=== PATIENT | male | born 1975 | race Caucasian/White ===

== ENCOUNTER 2017-12-18 09:15 | Inpatient (IN) | payer BC ==
[2017-12-18] MEDS ORDERED: EPINEPHrine 2 MG in DEXTROSE 5% IN WATER 250 ML IV ONE ×2 (09:30)
[2017-12-18] MEDS ORDERED: SODIUM CHLORIDE 0.9% 1,000 ML IV STA (09:31)
[2017-12-18] MEDS ORDERED: EPINEPHRINE IV ONE ×4 (09:32→09:48)
[2017-12-18] MEDS ORDERED: DEXTROSE 5% IV ONE ×2 (09:32)
[2017-12-18] MEDS ORDERED: WATER IV ONE ×2 (09:32)
[2017-12-18 09:43] LABS: Glucose,Whole Blood 221 mg/dL (75-99)
--- NOTE | 2017-12-18 09:43 | ED ---
General Adult HPI - General Stated complaint: cardiac Source: EMS, RN notes reviewed Mode of arrival: EMS Limitations: altered mental status, physical limitation - History of Present Illness Initial comments: Patient is an unresponsive 42-year-old male presenting to the emergency department with a transfer from [facility]. Patient reportedly did complain of either chest or back discomfort that radiated to the left shoulder. EMS reports patient complained of back discomfort however [facility] stated patient complained of chest discomfort. Patient did have a syncopal episode. While at [facility] patient did go into V. tach and V. fib. Patient also went into pulseless electrical activity. Following this patient was bradycardic. EKG did show ST depression. Call was received from Dr. rachel at [facility] requesting transfer. I did request a call cardiology. They did speak with both Dr. Barkley and Dr. Montesinos. I also spoke with Dr. Barkley and Dr. Montesinos prior to patient arrival. Dr. Montesinos did come down within the first minute or 2 of patient arrival to evaluate. Review of Systems ROS Statement: Those systems with pertinent positive or pertinent negative responses have been documented in the HPI. Limitations: ROS unobtainable due to patients medical condition General Exam Limitations: altered mental status, physical limitation General appearance: obtunded Head exam: Present: atraumatic Eye exam: Present: other (Pupils are fixed and dilated) ENT exam: Present: other (Intubated) Neck exam: Present: normal inspection Respiratory exam: Present: normal lung sounds bilaterally (On ventilator) Cardiovascular Exam: Present: regular rate, normal rhythm GI/Abdominal exam: Present: soft. Absent: tenderness Extremities exam: Present: normal inspection Neurological exam: Present: other (Unresponsive. GCS 3.) Expanded Eye Response: (1) no response Motor Response: (1) no motor response Verbal Response: (1) no verbal response Psychiatric exam: Present: other (Unresponsive) Skin exam: Present: normal color Course - Reevaluation(s) Reevaluation #1: 12/18/17 09:39 Patient did go into V. fib in the emergency department. Patient was shocked and return of circulation was obtained. 12/18/17 09:41 was updated. She states patient actually complained of shoulder discomfort upon presentation. She denies any previous cardiac history. 12/18/17 09:44 Patient has left for the [facility] at this time. Case was also discussed in detail with Dr. solis, who will admit for Dr. crews. EKG Findings - EKG Comments: EKG Findings:: Sinus bradycardia 58. For screening AV block with NV of 254. QRS 122. QT 456. QTc 447. Normal axis. Nonspecific intraventricular conduction delay. ST elevation in AVR with diffuse ST depression. Medical Decision Making - Radiology Data Interpreted by me: Chest x-ray reviewed by myself does show appropriate endotracheal tube and gastric tube placement. There is diffuse patchy infiltrates, mostly of the upper lobe. No gross mediastinal widening. Disposition Clinical Impression: Cardiac arrest Disposition: ADMITTED IP TO THIS HOSP Condition: Critical Is patient prescribed a controlled substance at d/c from ED?: No Referrals: Caleb Torre MD [Primary Care Provider] - 1-2 days Decision Time: 09:45
[2017-12-18] MEDS ORDERED: IV FLUID CONTINUATION 1,000 ML IV ONE ×3 (09:48)
[2017-12-18] MEDS ORDERED: FLUID CONTINUATION IV ONE ×2 (09:48)
--- NOTE | 2017-12-18 09:50 | XR ---
EXAMINATION TYPE: XR chest 1V portable DATE OF EXAM: 12/18/2017 COMPARISON: NONE HISTORY: Chest pain TECHNIQUE: Single frontal view of the chest is obtained. FINDINGS: ET tube approximately 6.7 cm above tete. NG tube seen with the tip near the GE junction. Bilateral areas of consolidation are noted. No pneumothorax. Heart size slightly prominent. IMPRESSION: Bilateral airspace disease can be seen with pneumonia or pulmonary edema correlate clini jacquelin. NG tube could be advanced a few centimeters with the tip at the GE junction.
[2017-12-18 09:52] LABS: Basophils # (A) 0.2 k/uL (0-0.2); Basophils % (A) 1 %; Eosinophils # (A) 0.2 k/uL (0-0.7); Eosinophils % (A) 1 %; HCT 46.5 % (39.0-53.0); HGB 14.3 gm/dL (13.0-17.5); Hypochromasia Marked; Lymphocytes # (A) 6.8 k/uL (1.0-4.8); Lymphocytes % (A) 39 %; MCH 32.4 pg (25.0-35.0); MCHC 30.7 g/dL (31.0-37.0); MCV 105.6 fL (80.0-100.0); Macrocytosis Slight; Mean Platelet Volume 8.6; Monocytes # (A) 0.4 k/uL (0-1.0); Monocytes % (A) 2 %; Neutrophils # (A) 9.6 k/uL (1.3-7.7); Neutrophils % (A) 55 %; RBC 4.41 m/uL (4.30-5.90); RDW 12.8 % (11.5-15.5); WBC 17.4 k/uL (3.8-10.6)
[2017-12-18] MEDS ORDERED: LIDOCAINE 2% INJ 20 MG/ML SQ ONE (10:00)
[2017-12-18 10:06] LABS: Platelet Count 70 k/uL (150-450)
[2017-12-18 10:11] LABS: Albumin 2.2 g/dL (3.5-5.0); Calcium 7.7 mg/dL (8.4-10.2); Total Bilirubin 0.7 mg/dL (0.2-1.3); Total Protein 4.2 g/dL (6.3-8.2)
[2017-12-18 10:17] LABS: Potassium 3.9 mmol/L (3.5-5.1)
[2017-12-18 10:19] LABS: INR 1.6 (<1.2)
[2017-12-18 10:20] LABS: Prothrombin Time 14.5 sec (9.0-12.0)
[2017-12-18] MEDS ORDERED: MIDAZOLAM 2 MG/2 ML VIAL IV ONE ×2 (10:22→11:15)
[2017-12-18 10:27] LABS: HCT 46.9 % (39.0-53.0); HGB 14.4 gm/dL (13.0-17.5); Hypochromasia Marked; MCH 31.5 pg (25.0-35.0); MCHC 30.8 g/dL (31.0-37.0); MCV 102.4 fL (80.0-100.0); Macrocytosis Slight; Mean Platelet Volume 9.6; RBC 4.58 m/uL (4.30-5.90); RDW 12.7 % (11.5-15.5); WBC 23.7 k/uL (3.8-10.6)
[2017-12-18 10:29] LABS: Platelet Count 94 k/uL (150-450)
[2017-12-18 10:32] LABS: D-Dimer >35.20 mg/L FEU (<0.60)
[2017-12-18 10:34] LABS: Magnesium 4.9 mg/dL (1.6-2.3); Partial Thromboplastin Time >200.0 sec (22.0-30.0)
[2017-12-18 10:36] LABS: Troponin I 1.05 ng/mL (0.000-0.034)
[2017-12-18] MEDS ORDERED: POTASSIUM CHLORIDE 40 MEQ in SODIUM CHLORIDE 0.9% 250 ML IVPB ONE (10:39)
[2017-12-18] MEDS ORDERED: BIVALIRUDIN 250 MG in SODIUM CHLORIDE 0.9% 50 ML IV ONE ×2 (10:48→11:43)
[2017-12-18] MEDS ORDERED: BIVALIRUDIN BOLUS 250 MG/50 ML IV ONE (10:48)
[2017-12-18] MEDS ORDERED: EPINEPHrine 10 ML SYRINGE (0.1 MG/ML) ONE ×2 (10:51→22:43)
[2017-12-18 11:00] LABS: Band Neutrophils % 7 %; Eosinophils # (M) 0.47 k/uL (0-0.7); Lymphocytes # (M) 9.01 k/uL (1.0-4.8); Metamyelocytes # (M) 0.71 k/uL (0); Metamyelocytes % 3 %; Monocytes # (M) 0.24 k/uL (0-1.0); Myelocytes # (M) 0.95 k/uL (0); Myelocytes % 4 %; Neutrophils % (M) 47 %; Nucleated Red Blood Cells 0 /100 WBC (0-0); Total Cells Counted 200
[2017-12-18] MEDS ORDERED: POTASSIUM CHLORIDE 100 ML IVPB SCH (11:00)
[2017-12-18 11:02] LABS: Anisocytosis (M) Present; Poikilocytosis (M) Present
[2017-12-18] MEDS ORDERED: DEXTROSE 5% IN WATER 100 ML with AMIODARONE 150 MG IV ONE (11:08)
[2017-12-18] MEDS ORDERED: FUROSEMIDE 10 MG/ML 4 ML VIAL IV ONE ×2 (11:08→11:23)
[2017-12-18] MEDS ORDERED: NITROGLYCERIN 1000MCG/10ML SYRINGE INTRACORON ONE (11:17)
[2017-12-18] MEDS ORDERED: FUROSEMIDE 10 MG/ML 4 ML VIAL ONE (11:20)
[2017-12-18] MEDS: POTASSIUM CHLORIDE 20 MEQ in WATER FOR INJECTION 1 100ML.BAG IVPB SCH ×2 (11:23→13:16)
[2017-12-18] MEDS: AMIODARONE 450 MG in DEXTROSE 5% IN WATER 250 ML IV SCH ×4 (11:32→19:53)
[2017-12-18] MEDS ORDERED: SODIUM BICARB 8.4% 50 ML SYR (1 MEQ/ML) IV ONE (11:48)
[2017-12-18] MEDS: MIDAZOLAM 2 MG/2 ML VIAL IV ONE ×2 (11:50→12:25)
[2017-12-18] MEDS ORDERED: CALCIUM CHLORIDE 100 MG/ML 10 ML SYRINGE IV ONE ×2 (11:50)
[2017-12-18] MEDS ORDERED: LIDOCAINE HCL/PF 20 MG/ML 10 ML AMP IV ONE (11:54)
[2017-12-18] MEDS ORDERED: IOPAMIDOL-370 125ML BTL INJ ONE (11:58)
[2017-12-18] MEDS ORDERED: IOPAMIDOL-370 100ML BTL INJ ONE ×2 (11:58)
[2017-12-18] MEDS ORDERED: LIDOCAINE 2% INJ 20 MG/ML (20 ML MDV) IV ONE (12:01)
[2017-12-18] MEDS ORDERED: NITROGLYCERIN SL TABS 0.4 MG TAB SUBLINGUAL PRN (12:03)
[2017-12-18] MEDS ORDERED: RX INFO: IV CONTRAST WAS GIVEN 1 EACH MISC MISCELLANE PRN (12:03)
[2017-12-18] MEDS ORDERED: SODIUM CHLORIDE 0.9% 1,000 ML IV SCH (12:15)
--- NOTE | 2017-12-18 12:15 | P.CRDCN ---
History of Present Illness Consult date: 12/18/17 History of present illness: This is a 42-year-old gentleman who was transferred from [facility] to [facility] emergency room after cardiac arrest. The patient currently is intubated and he is on ventilator and the history was taken from his who was bedside. The patient was in his usual state of health until this cuff folder when he woke up from sleep complaining of pain in between his shoulders. No chest pain or chest discomfort. No shortness of breath or dizziness or lightheadedness or sweating. He didn't tell his about the pain in his shoulder and subsequently the who was in the other room here N Jesus and she went to check on her where he was long-term on the chair and long-term on the floor with saliva coming out of his mouth. The patient was in cardiac arrest. EMS was called and the down time at that point was 15 minutes. The patient was found to be in V. fib where he received CPR and was brought to normal sinus mechanism and that he was brought to the emergency room at [facility]. At the emergency room over there he did have to cardiac arrest each one about 15-20 minutes down time was V. fib and the patient was brought back to normal sinus mechanism after CPR. On the way to the emergency room at [facility] the patient had another cardiac arrest for about 15 minutes as well as and he was brought to normal sinus mechanism after he received CPR as well. In the emergency room here I did review the EKG and at that point the patient was in normal sinus mechanism and the EKG showed sinus rhythm with ST segment elevation in aVR and diffuse ST segment depression, finding quite concerning for left main coronary artery. The patient was taken emergently to the cardiac catheterization laboratory where he did undergo a heart catheterization and was found to have acute total occlusion of the large first obtuse marginal branch of the left circumflex with thrombus burden. Beside that he was found to have moderate to severe disease involving the LAD. At that point I attempted placing an Impella but every time across aortic valve with a wire the patient goes to V. fib and we had to shock him to bring him back to normal sinus mechanism. Currently the patient is intubated, he is on ventilator,. He is on lidocaine drip, amiodarone drip, and he is on AP drip as well. He will be on dual antiplatelet therapy along with high intensity statin and also I will start him on metoprolol. We will consult nursing department chairperson, Dr. Diego to see him as well. I already spoke with his primary care physician and I already updated him about was going on with him and where we are at this point. Past Medical History Past Medical History: No Reported History History of Any Multi-Drug Resistant Organisms: Unobtainable Past Surgical History: No Surgical Hx Reported Past Psychological History: Unable to Obtain Smoking Status: Unknown if ever smoked Past Alcohol Use History: Unable to Obtain Past Drug Use History: Unable to Obtain - Past Family History Mother Family Medical History: Coronary Artery Disease (CAD), Hyperlipidemia, Hypertension Additional Family Medical History / Comment(s): diet controlled dm, cardiac stents Father Family Medical History: Coronary Artery Disease (CAD), Myocardial Infarction ([place] ) Additional Family Medical History / Comment(s): mi at ge 49, cardiac astents x5 Medications and Allergies Home Medications Medication Instructions Recorded Confirmed Type Ibuprofen [Motrin Ib] 400 mg PO Q6H PRN 12/18/17 12/18/17 History Losartan/Hydrochlorothiazide 1 tab PO DAILY 12/18/17 12/18/17 History [Losartan-Hctz 50-12.5 mg Tab] Metoprolol Succinate (ER) [Toprol 50 mg PO DAILY 12/18/17 12/18/17 History Xl] Allergies Allergy/AdvReac Type Severity Reaction Status Date / Time codeine Allergy Hallucinati Verified 12/18/17 14:20 ons Physical Exam Vitals: Vital Signs Temp Pulse Resp Pulse Ox 12/18/17 10:35 96.2 F L 63 18 77 L 12/18/17 09:16 96.2 F L 63 18 77 L Intake and Output 12/17/17 12/18/17 12/18/17 22:59 06:59 14:59 Intake Total 38.26 Balance 38.26 Intake: IV 38.26 Other: Weight 81.647 kg - Constitutional General appearance: mild distress - Respiratory Respiratory: bilateral: diminished - Cardiovascular Rhythm: regular Results 12/19/17 00:50 12/19/17 00:50 Cardiac Enzymes 12/18/17 12/18/17 Range/Units 09:31 09:31 AST 164 H (17-59) U/L CK-MB (CK-2) 36.0 H* (0.0-2.4) ng/mL Troponin I 1.050 H* (0.000-0.034) ng/mL Coagulation 12/18/17 Range/Units 09:31 PT 14.5 H (9.0-12.0) sec APTT >200.0 H* (22.0-30.0) sec CBC 12/18/17 12/18/17 Range/Units 09:31 10:15 WBC 17.4 H 23.7 H (3.8-10.6) k/uL RBC 4.41 4.58 (4.30-5.90) m/uL Hgb 14.3 14.4 (13.0-17.5) gm/dL Hct 46.5 46.9 (39.0-53.0) % Plt Count 70 L 94 L (150-450) k/uL Comprehensive Metabolic Panel 12/18/17 12/18/17 Range/Units 09:31 10:15 Sodium 146 H (137-145) mmol/L Potassium 3.9 (3.5-5.1) mmol/L Chloride 111 H (98-107) mmol/L Carbon Dioxide 7 L* (22-30) mmol/L BUN 6 L 6 L (9-20) mg/dL Creatinine 1.41 H 1.53 H (0.66-1.25) mg/dL Glucose 230 H (74-99) mg/dL Calcium 7.7 L (8.4-10.2) mg/dL AST 164 H (17-59) U/L ALT 68 (21-72) U/L Alkaline Phosphatase 69 (38-126) U/L Total Protein 4.2 L (6.3-8.2) g/dL Albumin 2.2 L (3.5-5.0) g/dL Current Medications Generic Name Dose Route Start Last Admin Trade Name Freq PRN Reason Stop Dose Admin Epinephrine HCl 2 mg/ Dextrose 252 mls @ 15.12 mls/hr 12/18/17 09:30 /Water IV 12/19/17 02:02 .[id number] ONE Protocol 2 MCG/MIN Sodium Chloride 1,000 mls @ 100 mls/hr 12/18/17 09:31 Saline 0.9% IV 12/18/17 19:30 .Q10H STA Epinephrine HCl 5 mg/ Dextrose 252 mls @ 6.04 mls/hr 12/18/17 09:32 /Water IV 12/19/17 09:31 .Q24H ONE Protocol 2 MCG/MIN Potassium Chloride 20 meq/ IV 100 mls @ 50 mls/hr 12/18/17 11:15 12/18/17 11: 23 Solution IVPB 12/18/17 13:59 0 mls Q2HR AILYN Administration Amiodarone HCl 450 mg/ 250 mls @ 33.33 mls/hr 12/18/17 11:15 12/18/17 11:32 Dextrose/Water IV 12/19/17 11:13 0 mls .[id number] AILYN Administration Protocol 1 MG/MIN Lidocaine HCl 81.647 mg 12/18/17 12:01 Xylocaine 2% Inj (20mg/Ml) 1 mg/kg (81.647 mg) 12/18/17 12:02 IV ONCE ONE Intake and Output 12/17/17 12/18/17 12/18/17 22:59 06:59 14:59 Intake Total 38.26 Balance 38.26 Intake: IV 38.26 Other: Weight 81.647 kg Patient Weight 12/19/17 06:59 Weight 81.647 kg 12/18/17 10:15 12/18/17 10:15 Assessment and Plan Assessment: Assessment #1 cardiac arrest #2 [address] elevation myocardial infarction #3 cardiogenic shock #4 significant history of smoking Plan #1 dual antiplatelet therapy along with a statin next #2 continue the amiodarone drip and lidocaine drip #3 ICU management per Supervisor Telephone Clerks #4 follow-up with the patient.
--- NOTE | 2017-12-18 12:27 | ECHOF ---
Referral Reason:S/P cardiac Arrest MEASUREMENTS -------- HEIGHT: 177.8 cm WEIGHT: 81.6 kg BP: RVIDd: 2.4 cm (< 3.3) IVSd: 1.1 cm (0.6 - 1.1) LVIDd: 4.1 cm (3.9 - 5.3) LVPWd: 1.2 cm (0.6 - 1.1) IVSs: 1.4 cm LVIDs: 3.4 cm LVPWs: 1.3 cm LAESV Index (A-L): 31.64 ml/m Ao Diam: 2.9 cm (2.0 - 3.7) AV Cusp: 1.8 cm (1.5 - 2.6) LA Diam: 2.4 cm (2.7 - 3.8) EPSS: 0.8 cm MV E Simón: 1.06 m/s MV DecT: 232 ms MV A Simón: 0.46 m/s MV E/A Ratio: 2.31 RAP: 5.00 mmHg RVSP: 12.99 mmHg MV EF SLOPE: 100.42 mm/s (70 - 150) MV EXCURSION: 1.24 cm (> 18.000) FINDINGS -------- Sinus rhythm. This was a technically difficult study with suboptimal views. The left ventricular size is normal. There is borderline concentric left ventricular hypertrophy. Overall left ventricular systolic function is mild-moderately impaired with, an EF between 40 - 45 % . Inferiorlateral Hypokinesis Inferior Hypokinesis The right ventricle is normal in size and function. LA is midly dilated 29-33ml/m2. The right atrium is normal in size. The aortic valve is trileaflet and appears structurally normal. The mitral valve is normal. Mild mitral regurgitation is present. Trace tricuspid regurgitation present. Right ventricular systolic pressure is normal at < 35 mmHg. The pulmonic valve was not well visualized. There is no pulmonic regurgitation present. The aortic root size is normal. Normal inferior vena cava with normal inspiratory collapse consistent with estimated right atrial pre ssure of 5 mmHg. There is no pericardial effusion. CONCLUSIONS -------- 1. Sinus rhythm. 2. This was a technically difficult study with suboptimal views. 3. The left ventricular size is normal. 4. There is borderline concentric left ventricular hypertrophy. 5. Overall left ventricular systolic function is mild-moderately impaired with, an EF between 40 - 45 %. 6. Inferiorlateral Hypokinesis 7. Inferior Hypokinesis 8. LA is midly dilated 29-33ml/m2. 9. The aortic valve is trileaflet and appears structurally normal. 10. Mild mitral regurgitation is present. 11. Trace tricuspid regurgitation present. 12. Right ventricular systolic pressure is normal at < 35 mmHg. 13. The pulmonic valve was not well visualized. 14. There is no pulmonic regurgitation present. 15. The aortic root size is normal. 16. There is no pericardial effusion. ELEVATOR REPAIRER HELPER: Negrito Burgos RDCS
[2017-12-18] MEDS ORDERED: CISATRACURIUM 2 MG/ML 5 ML VIAL IV ONE ×2 (12:44)
[2017-12-18] MEDS ORDERED: CISATRACURIUM 200 MG in SODIUM CHLORIDE 0.9% 180 ML IV SCH (12:45)
[2017-12-18] MEDS ORDERED: SODIUM BICARB 8.4% 50 ML SYR (1 MEQ/ML) IV STA ×4 (12:50→18:53)
[2017-12-18 12:58] LABS: ABG Base Excess -13.6 mmol/L; ABG HCO3 17 mmol/L (21-25); ABG Oxygen Saturation 85.7 % (94-97); ABG PCO2 60 mmHg (35-45); ABG PO2 70 mmHg (83-108); ABG TCO2 19 mmol/L (19-24)
[2017-12-18 12:59] LABS: Glucose,Whole Blood 186 mg/dL (75-99)
[2017-12-18 12:59] LABS: ABG PH 7.06 (7.35-7.45)
[2017-12-18] MEDS ORDERED: LIDOCAINE-D5W PMX 2G/500ML 4 MG/ML IV ONE (13:05)
[2017-12-18] MEDS ORDERED: NALOXONE 0.4 MG/ML 1 ML VIAL IV PRN (13:11)
[2017-12-18] MEDS ORDERED: PANTOPRAZOLE 40 MG/10 ML VIAL IV SCH (13:15)
[2017-12-18] MEDS ORDERED: DEXTROSE 5% IN WATER 1,000 ML with SODIUM BICARB (1 MEQ/ML) 150 ML IV SCH ×2 (13:15→15:30)
[2017-12-18] MEDS: SODIUM CHLORIDE 0.9% 1,000 ML IV SCH (13:24)
[2017-12-18] MEDS ORDERED: LIDOCAINE-D5W PMX 2G/500ML 2,000 MG in DEXTROSE/WATER 1 500ML.BAG IV SCH (13:30)
--- NOTE | 2017-12-18 13:33 | P.CNPUL ---
History of Present Illness Consult date: 12/18/17 Requesting physician: Jarad Hopson Reason for consult: other (Cardiac arrest and respiratory failure) Chief complaint: Cardiac arrest History of present illness: This is a 42-year-old white male, history of hypertension, no documented history of coronary artery disease, patient was transferred today from [facility] to [facility] after a cardiac arrest. Woke up this morning complaining of pain in between his shoulders., Didn't tell his about the pain, shortly after, the patient collapsed in the room, and he was found by his foaming around his mouth, and unresponsive. EMS responded to the call, down time at that point was at least 15 minutes. Patient was found in ventricular fibrillation, he was defibrillated , CPR was initiated, then the patient went into sinus rhythm. On the way to [facility] ER, patient had another cardiac arrest for 15 minutes, received CPR again. Upon arrival to the ER, patient was in normal sinus rhythm , there was evidence of ST segment elevation in aVR, and diffuse ST segment depression patient was taken straight to the cardiac catheterization lab, underwent immediate cardiac catheterization, and he was found to have totally occluded large first obtuse marginal branch of the left circumflex with thrombus burden. He was also found to have moderate to severe disease involving the LAD. Placing an impella was attempted, but was not successful because the patient kept going into ventricular fibrillation every time the aortic valve was reached with a wire. Patient was defibrillated many times probably about 15 times in the cardiac catheterization lab. Patient was sent to the intensive care unit on mechanical ventilation, lidocaine drip, amiodarone drip, and he was on dual antiplatelet therapy. I evaluated the patient upon arrival to the ICU, and he was noted to be not synchronous with the ventilator, patient was extremely tachypneic, not ventilating properly, hence recommended paralyzing the patient, patient was already on a PEEP of 12, his rate was increased to 28, tidal volume was placed at 500, flow rate was adjusted to 75 L/m, sodium bicarb was given, ABG drawn showed a pO2 of 70 pCO2 of 60 and pH of 7.06. More bicarb was given. Rate on the ventilator was also adjusted. Sodium bicarb drip was ordered Nimbex drip was also ordered. Repeat ABG is pending. Chest x-ray showed mostly pulmonary edema. Blood pressure was noted to be quite elevated hence epinephrine drip was discontinued. Orders were placed on the chart, vent bundles were ordered. Patient will be sedated, On Nimbex, paralyzed, may even start the patient on propofol. Along with morphine sulfate [id number]. Review of Systems ROS unobtainable: due to endotracheal tube (Cannot be obtained, no family members available at bedside.) Past Medical History Past Medical History: No Reported History, Hypertension History of Any Multi-Drug Resistant Organisms: Unobtainable Past Surgical History: No Surgical Hx Reported Past Psychological History: Unable to Obtain Smoking Status: Unknown if ever smoked Past Alcohol Use History: Unable to Obtain Past Drug Use History: Unable to Obtain Medications and Allergies Home Medications Medication Instructions Recorded Confirmed Type Ibuprofen [Motrin Ib] 400 mg PO Q6H PRN 12/18/17 12/18/17 History Losartan/Hydrochlorothiazide 1 tab PO DAILY 12/18/17 12/18/17 History [Losartan-Hctz 50-12.5 mg Tab] Metoprolol Succinate (ER) [Toprol 50 mg PO DAILY 12/18/17 12/18/17 History Xl] Allergies Allergy/AdvReac Type Severity Reaction Status Date / Time codeine Allergy Unknown Verified 12/18/17 09:41 Physical Exam Vitals: Vital Signs Temp Pulse Resp Pulse Ox 12/18/17 10:35 96.2 F L 63 18 77 L 12/18/17 09:16 96.2 F L 63 18 77 L Intake and Output 12/17/17 12/18/17 12/18/17 22:59 06:59 14:59 Intake Total 968.86 Output Total 550 Balance 418.86 Intake: IV 968.86 Intake, IV Titration 0 Amount EPINEPHrine 5 mg In 0 Dextrose 5% in Water 245 ml @ 2 MCG/MIN 6.04 mls/ hr IV .Q24H ONE Rx#: [id number] Output: Urine 550 Other: Weight 81.647 kg Physical Exam: Revealed a 42-year-old white male on mechanical ventilation, unresponsive, patient is now on Nimbex, paralyzed. Head: Atraumatic, normocephalic. HEENT:[Neck is supple.] [No neck masses.] [No thyromegaly.] [No JVD.] Moist mucous membranes, PERRLA, EOMI, no icterus. Endotracheal tube and nasogastric tube are intact. Chest: [Symmetrical chest expansion, crackles at the bases bilaterally. Some rhonchi noted bilaterally.] Cardiac Exam: [Normal S1 and S2, no S3 gallop, no murmur.] Abdomen: [Soft, nontender, no megaly, no rebound, no guarding, normal bowel sounds.] Extremities: [No clubbing, no edema, no cyanosis.] Multiple lines noted in the left and the right groin. Neurological Exam: Cannot be assessed, patient is sedated and paralyzed. Psychiatric: Cannot be assessed. Lymphatics: No lymphadenopathy. Results - Laboratory Findings CBC and BMP: 12/18/17 10:15 12/18/17 10:15 ABG ABG pH 7.06 (7.35-7.45) L* 12/18/17 12:56 ABG pCO2 60 mmHg (35-45) H 12/18/17 12:56 ABG pO2 70 mmHg (83-108) L 12/18/17 12:56 ABG O2 Saturation 85.7 % (94-97) L 12/18/17 12:56 PT/INR, D-dimer PT 14.5 sec (9.0-12.0) H 12/18/17 09:31 INR 1.6 (<1.2) H 12/18/17 09:31 D-Dimer >35.20 mg/L FEU (<0.60) H 12/18/17 09:31 Abnormal lab findings: Abnormal Labs 12/18/17 12/18/17 12/18/17 09:20 09:31 09:31 WBC 17.4 H MCV 105.6 H MCHC 30.7 L Plt Count 70 L Neutrophils # 9.6 H Neutrophils # (Manual) Lymphocytes # 6.8 H Lymphocytes # (Manual) Metamyelocytes # (Man) Myelocytes # (Manual) PT INR APTT D-Dimer ABG pH ABG pCO2 ABG pO2 ABG HCO3 ABG O2 Saturation Sodium Chloride Carbon Dioxide BUN Creatinine Glucose POC Glucose (mg/dL) 221 H Calcium Magnesium AST Total Creatine Kinase 2171 H CK-MB (CK-2) 36.0 H* Troponin I 1.050 H* Total Protein Albumin 12/18/17 12/18/17 12/18/17 09:31 09:31 10:15 WBC MCV MCHC Plt Count Neutrophils # Neutrophils # (Manual) Lymphocytes # Lymphocytes # (Manual) Metamyelocytes # (Man) Myelocytes # (Manual) PT 14.5 H INR 1.6 H APTT >200.0 H* D-Dimer >35.20 H ABG pH ABG pCO2 ABG pO2 ABG HCO3 ABG O2 Saturation Sodium 146 H Chloride 111 H Carbon Dioxide 7 L* BUN 6 L 6 L Creatinine 1.41 H 1.53 H Glucose 230 H POC Glucose (mg/dL) Calcium 7.7 L Magnesium 4.9 H* AST 164 H Total Creatine Kinase CK-MB (CK-2) Troponin I Total Protein 4.2 L Albumin 2.2 L 12/18/17 12/18/17 12/18/17 10:15 12:45 12:56 WBC 23.7 H MCV 102.4 H MCHC 30.8 L Plt Count 94 L Neutrophils # Neutrophils # (Manual) 12.70 H Lymphocytes # Lymphocytes # (Manual) 9.01 H Metamyelocytes # (Man) 0.71 H Myelocytes # (Manual) 0.95 H PT INR APTT D-Dimer ABG pH 7.06 L* ABG pCO2 60 H ABG pO2 70 L ABG HCO3 17 L ABG O2 Saturation 85.7 L Sodium Chloride Carbon Dioxide BUN Creatinine Glucose POC Glucose (mg/dL) 186 H Calcium Magnesium AST Total Creatine Kinase CK-MB (CK-2) Troponin I Total Protein Albumin - Diagnostic Findings Chest x-ray: image reviewed (As noted in HPI. There is evidence of pulmonary edema, strongly doubt pneumonia.) CT scan - chest: image reviewed Additional studies: Echocardiogram showed moderately impaired left ventricular systolic function ejection fraction 40-45% and inferior lateral hypokinesis noted. Mild mitral regurgitation noted. Right-sided pressures less than 35. Assessment and Plan Assessment: Impression: 1 acute hypoxic and hypercapnic respiratory failure secondary to acute pulmonary edema secondary to acute cardiac arrest secondary to acute ST elevation myocardial infarction and cardiogenic shock 2 acute pulmonary edema secondary to acute ST elevation myocardial infarction and acute systolic LV dysfunction. 3 acute cardiogenic shock secondary to acute ST elevation myocardial infarction. 4 possible anoxic brain injury considering the down time taken to reestablish adequate circulation a blood flow. 5 history of benign essential hypertension 6 history of smoking, no documented history of COPD. 7 acute kidney injury secondary to acute tubular necrosis and hypotension. 8 possible aspiration pneumonia, patient was noted by the nurses vomiting upon arrival to the ICU, may have aspirated around the endotracheal tube. Hence antibiotics coverage empirically will be initiated. 9 recurrent episodes of ventricular tachycardia and ventricular fibrillation secondary to acute ST elevation myocardial infarction. Recommendation: Patient will be kept on mechanical ventilation, he will remain on Nimbex, we will likely add morphine sulfate around the clock, and possibly propofol. Epinephrine was discontinued shortly after he arrived to the ICU, patient remains on amiodarone and on lidocaine. He is also on Plavix and aspirin. Beta blockers and statins were added by cardiology. My plan is to keep him on mechanical ventilation, keep him on a relatively high PEEP, titrate the PEEP down as oxygenation improves. Depending on his overall clinical course and neurological recovery, may or may not seek neurological consultation. Overall prognosis is definitely extremely poor and guarded. We' ll discuss his condition with the shortly after. Critical care time is 45 minutes. Time with Patient: Greater than 30
[2017-12-18 13:50] LABS: Appearance,Urine Clear (Clear); Bacteria,Urine Occasional /hpf; Bilirubin,Urine Negative (Negative); Blood,Urine Large (Negative); Color,Urine Light Red; Glucose,Urine (UA) 1+ (Negative); Ketones,Urine Negative (Negative); Leukocyte Esterase,Urine Negative (Negative); Mucus,Urine Rare /hpf; Nitrite,Urine Negative (Negative); PH, Urine 6.5 (5.0-8.0); Protein,Urine 2+ (Negative); RBC,Urine 15 /hpf (0-5); Urobilinogen,Urine <2.0 mg/dL (<2.0); WBC,Urine 22 /hpf (0-5)
[2017-12-18] MEDS: NOREPINEPHRIN 16 MG-0.9%NS PMX 16 MG/250 ML ML IV SCH (13:58)
--- NOTE | 2017-12-18 14:00 | XR ---
EXAMINATION TYPE: XR chest 1V portable DATE OF EXAM: 12/18/2017 COMPARISON: 12/18/2017 HISTORY: Tube placement TECHNIQUE: Single frontal view of the chest is obtained. FINDINGS: ET tube is approximately 6.7 cm above the tete. NG tube is seen with the tip approximate ly at the level the GE junction. There is diffuse bilateral airspace disease. No pneumothorax. No sizable pleural effusion. Heart size stable. IMPRESSION: 1. Diffuse bilateral airspace disease correlate for pneumonia, pulmonary edema or ARDS. Aspiration pn eumonia in the differential diagnosis. 2. NG tube is somewhat proximal at the level the GE junction. Recommend advancement of the NG tube.
[2017-12-18] MEDS: MORPHINE SULFATE 2 MG/ML SYRINGE IVP SCH ×5 (14:48→22:16)
[2017-12-18 14:57] LABS: ABG Base Excess -15.2 mmol/L; ABG HCO3 15 mmol/L (21-25); ABG Oxygen Saturation 94.7 % (94-97); ABG PCO2 50 mmHg (35-45); ABG PO2 102 mmHg (83-108); ABG TCO2 16 mmol/L (19-24)
[2017-12-18 15:00] LABS: ABG PH 7.08 (7.35-7.45)
[2017-12-18] MEDS: PIPERACILLIN-TAZOBACTAM 3.375 GM in DEXTROSE/WATER 1 50ML.BAG IVPB SCH (16:08)
[2017-12-18] MEDS: ARTIFICIAL TEARS-HYPROMELLOSE DROPS 15 ML BTL BOTH EYES SCH ×3 (16:15→23:43)
[2017-12-18 18:14] LABS: Glucose,Whole Blood 157 mg/dL (75-99)
[2017-12-18] MEDS ORDERED: Potassium Replacement Protocol 1 EACH MISC MISCELLANE PRN (18:40)
[2017-12-18 18:47] LABS: ABG Base Excess -8.3 mmol/L; ABG HCO3 20 mmol/L (21-25); ABG Oxygen Saturation 93.6 % (94-97); ABG PCO2 58 mmHg (35-45); ABG PO2 86 mmHg (83-108); ABG TCO2 22 mmol/L (19-24)
[2017-12-18 18:48] LABS: ABG PH 7.16 (7.35-7.45)
[2017-12-18] MEDS: INSULIN ASPART 100 UNIT/ML 1 ML 10 ML VIAL SQ SCH (19:11)
[2017-12-18] MEDS: POTASSIUM CHLORIDE 10 MEQ in WATER FOR INJECTION 1 100ML.BAG IVPB SCH ×2 (19:55→21:33)
[2017-12-18 20:37] VITALS: TEMP 99.2
[2017-12-18] MEDS ORDERED: ATORVASTATIN 80 MG TAB PO SCH (21:00)
[2017-12-18] MEDS ORDERED: CHLORHEXIDINE GLUCONATE 15 ML CUP MUCOUS MEM SCH (21:00)
[2017-12-18] MEDS ORDERED: METOPROLOL TARTRATE 25 MG TAB PO SCH (21:00)
--- NOTE | 2017-12-18 22:00 | HP ---
HISTORY AND PHYSICAL DATE OF ADMISSION: 12/18/2017 DATE OF SERVICE: 12/18/2017 PRESENTING COMPLAINT: Cardiac arrest. HISTORY OF PRESENTING COMPLAINT: This is a 42-year-old patient who follows with Dr. Torre. Patient was transferred from [facility]. History is obtained from the nursing staff and the notes. Patient was at home, was probably having pain for about one day in the shoulder and the back, and this morning his had stepped out of the room, came back, found the patient dropped, sloppy and frothing. His started CPR and then EMS came in there. Patient was found to be in ventricular fibrillation. He was defibrillated, found to be in sinus rhythm. Patient subsequently was taken to [facility], where he had a further arrest. From there the patient was transferred subsequently to [facility], where he had another arrest for 15 minutes and again received CPR. Patient did go into sinus rhythm. EKG showed ST- segment elevation and diffuse ST-segment depression. Patient was taken to the cardiac catheterization lab, where he was found to have totally occluded large first obtuse marginal branch of the left circumflex with thrombus burden. He was also found to have severe disease involving the LAD. Dr. Montesinos did try an Impella but was not successful because the patient kept going into ventricular fibrillation every time he tried that with a wire and patient had to be defibrillated several times, close to about 15 times in the lab support tech itself. Subsequently the patient was put on the ventilator, intubated and brought to the ICU, where the patient has been on lidocaine drip, amiodarone drip, propofol and a bicarbonate drip. Patient remains on the ventilator with FiO2 of 100% and a PEEP. Patient also was on a Nimbex drip. REVIEW OF SYSTEMS: Patient is intubated. PAST MEDICAL HISTORY: Patient is a smoker. Hypertension, asthma as a child. Sciatic nerve pain at times, varicose veins. 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 SURGICAL HISTORY: None. SOCIAL HISTORY: Patient is with 2 children. Smokes about 2 packs a day. Employed. FAMILY HISTORY: Both parents had coronary artery disease, also hyperlipidemia and hypertension. HOME MEDICATIONS: 1. Toprol XL 50 mg a day. 2. Losartan/hydrochlorothiazide 50/12.5 one tablet p.o. daily. 3. Motrin. ALLERGIES: CODEINE. PHYSICAL EXAMINATION: Temperature 98.2, pulse 114, respiration 28, blood pressure 97/75, pulse ox 100%. GENERAL APPEARANCE: Average build, lying in bed, intubated. EYES: Pupils equal, sluggish. HEENT: External appearance of nose and ears normal. Oral cavity with endotracheal tube in place. NECK: JVD unable to assess. Mass not palpable. RESPIRATORY: Effort increased. LUNGS: Diminished breath sounds. CARDIOVASCULAR: First and second sounds normal. No edema. ABDOMEN: Soft, nontender. Liver and spleen not palpable. LYMPHATIC: No lymph node palpable in neck or axillae. PSYCHIATRY: Unable to assess. NEUROLOGICAL: Pupils are a bit slow. Plantars equivocal. INVESTIGATIONS: Patient's white count was 23.7, hemoglobin 14.4. Patient's blood gas showed a pH of 7.06 and pCO2 of 60. Patient's potassium was 3.9, bicarb was 7, BUN 6, creatinine 1.41. Troponin 1.0. EKG showed diffuse ST-segment depression. ASSESSMENT: 1. Acute pdv-TU-pmopsljtx myocardial infarction with patient having multiple cardiac arrests, both in the field and in the hospital and during the cardiac catheterization procedure. 2. Unsuccessful stenting to the left anterior descending coronary artery with some stenting probably to the other vessel. I do not have the full details. 3. Essential hypertension. 4. Chronic nicotine dependence. 5. Severe metabolic acidosis. 6. Probable anoxic brain injury. 7. Acute congestive heart failure from acute myocardial infarction with systolic dysfunction, ejection fraction 40% to 45%. 8. Possible acute renal failure; could be prerenal. PLAN: Patient was seen by Dr. Montesinos from Interventional Cardiology, Dr. Diego from Critical Care. Patient is on supportive medications as above. Prognosis is poor/guarded. Supportive care is to continue. Dr. Diego and Dr. Montesinos spoke to the patient's family, especially the . I spoke to the nurse at length. MMODL / IJN: [id number] /
[2017-12-18 22:37] LABS: ABG Base Excess -9.3 mmol/L; ABG HCO3 19 mmol/L (21-25); ABG Oxygen Saturation 97.5 % (94-97); ABG PCO2 53 mmHg (35-45); ABG PO2 112 mmHg (83-108); ABG TCO2 21 mmol/L (19-24)
[2017-12-18 22:38] LABS: ABG PH 7.17 (7.35-7.45)
[2017-12-18] MEDS ORDERED: DEXTROSE 50%-WATER 50 ML SYRINGE IVP ONE (22:43)
[2017-12-18] MEDS ORDERED: SODIUM BICARB 8.4% 50 ML SYR (1 MEQ/ML) ONE (22:43)
[2017-12-18] MEDS ORDERED: SODIUM CHLORIDE 0.9% 99 ML with VASOPRESSIN 20 UNIT IV SCH ×2 (22:45)
[2017-12-18 23:02] LABS: Glucose,Whole Blood 73 mg/dL (75-99)
[2017-12-18 23:48] LABS: Glucose,Whole Blood 144 mg/dL (75-99)
[2017-12-19 01:05] LABS: HCT 45.4 % (39.0-53.0); HGB 15.4 gm/dL (13.0-17.5); MCH 32.2 pg (25.0-35.0); Mean Platelet Volume 8.7; Platelet Count 132 k/uL (150-450); RDW 13.3 % (11.5-15.5)
[2017-12-19 01:13] LABS: Calcium 6.6 mg/dL (8.4-10.2); Potassium 3.8 mmol/L (3.5-5.1)
[2017-12-19 01:16] LABS: MCV 94.7 fL (80.0-100.0)
[2017-12-19 01:17] LABS: WBC 30.6 k/uL (3.8-10.6)
[2017-12-19] MEDS: PIPERACILLIN-TAZOBACTAM 3.375 GM in DEXTROSE/WATER 1 50ML.BAG IVPB SCH (01:24)
[2017-12-19] MEDS: INSULIN ASPART 100 UNIT/ML 1 ML 10 ML VIAL SQ SCH (01:24)
[2017-12-19] MEDS ORDERED: SODIUM CHLORIDE 0.9% 1,000 ML IV ONE (01:27)
[2017-12-19] MEDS: SODIUM CHLORIDE 0.9% 1,000 ML IV SCH (01:29)
[2017-12-19] MEDS: NOREPINEPHRIN 16 MG-0.9%NS PMX 16 MG/250 ML ML IV SCH (01:36)
[2017-12-19 01:40] VITALS: BP 98/66
[2017-12-19 01:47] LABS: Band Neutrophils % 7 %; Lymphocytes # (M) 2.14 k/uL (1.0-4.8); Monocytes # (M) 1.84 k/uL (0-1.0); Neutrophils % (M) 81 %; Nucleated Red Blood Cells 0 /100 WBC (0-0); Total Cells Counted 200
[2017-12-19 01:55] LABS: Hemoglobin A1C 5.5 % (4.0-6.0)
[2017-12-19 03:48] VITALS: PULSE 85; RESP 28
[2017-12-19] MEDS: MORPHINE SULFATE 2 MG/ML SYRINGE IVP SCH (03:52)
[2017-12-19] MEDS ORDERED: DEXTROSE 50%-WATER 50 ML SYRINGE IVP ONE ×2 (04:07→04:15)
[2017-12-19 04:17] LABS: Glucose,Whole Blood 51 mg/dL (75-99)
[2017-12-19] MEDS ORDERED: ASPIRIN 325 MG TAB PO SCH (09:00)
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
[2017-12-19] MEDS ORDERED: CLOPIDOGREL 75 MG TAB PO SCH (12:05)
--- NOTE | 2017-12-21 07:30 | DS ---
DISCHARGE SUMMARY DATE OF ADMISSION: 12/18/2017 DATE PATIENT WAS TRANSFERRED: 12/19/2017 FINAL DIAGNOSES: 1. Acute non-ST elevation myocardial infarction with patient having multiple cardiac arrests, both in the field and in the hospital and during cardiac catheterization. 2. Unsuccessful stenting to the left anterior descending artery with successful stenting to the first obtuse marginal branch of left circumflex. 3. Attempted placement of Impella 2.5. 4. Essential hypertension. 5. Chronic nicotine dependence. 6. Severe metabolic acidosis. 7. Probable anoxic brain injury. 8. Acute congestive heart failure from acute myocardial infarction with systolic dysfunction, ejection fraction 40% to 45%. 9. Possible acute renal failure could be prerenal/acute tubular necrosis. CONSULTATIONS: Cardiology, Dr. Rivera/Dr. Montesinos; Critical Care, Dr. Diego. HOSPITAL COURSE: This is a patient who follows with Dr. Torre who was having chest pain at home, collapsed, started CPR. Patient was initially taken to [facility] and then he was brought here. The patient had multiple episodes of cardiac arrest with ventricular fibrillation. Taken to cardiac catheterization lab, successful angioplasty and stent was done to the first obtuse marginal branch, but Impella placement could not be done. The patient has multiple episodes of cardiac arrest yet again. The patient continued to do poorly towards the evening and overnight. The patient continued to not do well and calls were made to Dr. Diego and Dr. Rivera who was on for Cardiology and between them and the patient's wishes, the patient was transferred to [facility] for higher level of care. I became aware of the transfer in the morning during my rounds. DISPOSITION: [facility], [place], transfer. MMODL / IJN: [id number] /
== END 2017-12-19 05:03 | disposition short-term general hospital (02) | DRG 246 ==
LOC: EC 09:15 → 6ICU 09:34
PROVIDERS: ADMIT Hospitalist; ATTEND Hospitalist
PROC: 0BH18EZ Insertion of Endotracheal Airway into Trachea, Via Natural or Artificial Opening Endoscopic (ICD-10-PCS; principal; 2017-12-18 09:48)
PROC: 5A2204Z Restoration of Cardiac Rhythm, Single (ICD-10-PCS; principal; 2017-12-18 09:48)
PROC: 5A1935Z Respiratory Ventilation, Less than 24 Consecutive Hours (ICD-10-PCS; principal; 2017-12-18 09:48)
PROC: 5A12012 Performance of Cardiac Output, Single, Manual (ICD-10-PCS; principal; 2017-12-18 09:48)
PROC: 02C03ZZ Extirpation of Matter from Coronary Artery, One Artery, Percutaneous Approach (ICD-10-PCS; 2017-12-18 09:48)
PROC: B2111ZZ Fluoroscopy of Multiple Coronary Arteries using Low Osmolar Contrast (ICD-10-PCS; 2017-12-18 09:48)
PROC: 4A023N7 Measurement of Cardiac Sampling and Pressure, Left Heart, Percutaneous Approach (ICD-10-PCS; 2017-12-18 09:48)
PROC: 027034Z Dilation of Coronary Artery, One Artery with Drug-eluting Intraluminal Device, Percutaneous Approach (ICD-10-PCS; 2017-12-18 09:48)
DX: I21.4 Non-ST elevation (NSTEMI) myocardial infarction (principal); I49.01 Ventricular fibrillation; I50.21 Acute systolic (congestive) heart failure; J96.01 Acute respiratory failure with hypoxia; J96.02 Acute respiratory failure with hypercapnia; N17.0 Acute kidney failure with tubular necrosis; R57.0 Cardiogenic shock; E87.2 Acidosis; G93.1 Anoxic brain damage, not elsewhere classified; I47.2 Ventricular tachycardia; F17.210 Nicotine dependence, cigarettes, uncomplicated; I11.0 Hypertensive heart disease with heart failure; Z82.49 Family history of ischemic heart disease and other diseases of the circulatory system; Z83.3 Family history of diabetes mellitus; I25.10 Atherosclerotic heart disease of native coronary artery without angina pectoris; Z53.8 Procedure and treatment not carried out for other reasons; R40.2432 Glasgow coma scale score 3-8, at arrival to emergency department; Z88.5 Allergy status to narcotic agent; Z79.899 Other long term (current) drug therapy; Z83.49 Family history of other endocrine, nutritional and metabolic diseases
CPT/HCPCS: 71045; 80048; 80053; 81001; 82550; 82553; 82565; 82805; 83036; 83735; 84132; 84484; 84520; 85025; 85379; 85610; 85730; 86850; 86900; 86901; 87086; 92950; 93005; 93306; 93458; 94002; 94003; 94770; 96374; 99291